=== PATIENT | female | born 1985 | race Caucasian/White ===

== ENCOUNTER 2017-08-25 08:10 | Emergency (ER) | payer BC ==
--- NOTE | 2017-08-25 08:39 | ER Document Report ---
ED Medical Screen (RME) - General Chief Complaint: Palpitations Stated Complaint: IRREGULAR HEART BEAT,LEFT SIDE PAIN Time Seen by Provider: 08/25/17 08:33 TRAVEL OUTSIDE OF THE [place] IN LAST 30 DAYS: No - HPI Notes: 08/25/17 08:34 32-year-old female with a hx of anxiety presents today with complaints of an irregular heartbeat for 2 days and left sided chest pain that started last night. Reports she does have some shortness of breath with her irregular heart rate. Pt states episodes lasts between 10 minutes to 45 minutes, then she will have roughly 30 minutes without the feeling of palpitations. pt reports hx of palpaitations from when she was a child, was seen by a manager data warehousing as a child and "grew out of them". Denies any numbness or tingling down upper/bilateral lower extremities denies any nausea, vomiting, diarrhea. Denies any blurred vision, double vision, loss of vision. denies any abd pain, vaginal or pelvic pain. denies any fevers or chills. eating and drinking normally. bearing down or coughing does not andreina her palpitations. I have greeted and performed a rapid initial assessment of this patient. A comprehensive ED assessment and evaluation of the patient, analysis of test results and completion of medical decision making process will be conducted by an additional ED providers. 08/25/17 08:53 - Related Data Allergies/Adverse Reactions: No Known Allergies Allergy (Verified 08/25/17 08:11) Physical Exam - Vital signs Vitals: Temp Pulse Resp BP Pulse Ox 98.1 F 70 16 107/63 100 08/25/17 08:21 08/25/17 08:21 08/25/17 08:21 08/25/17 08:21 08/25/17 08:21 Course - Vital Signs Vital signs: Temp Pulse Resp BP Pulse Ox 98.1 F 70 16 107/63 100 08/25/17 08:21 08/25/17 08:21 08/25/17 08:21 08/25/17 08:21 08/25/17 08:21
--- NOTE | 2017-08-25 09:53 | ER Document Report ---
ED General - General Chief Complaint: Palpitations Stated Complaint: IRREGULAR HEART BEAT,LEFT SIDE PAIN Time Seen by Provider: 08/25/17 08:33 Mode of Arrival: Ambulatory Information source: Patient TRAVEL OUTSIDE OF THE [place] IN LAST 30 DAYS: No - HPI Notes: 32-year-old female with a hx of anxiety presents today with complaints of an irregular heartbeat for 2 days and left sided chest pain that started last night. Reports she does have some shortness of breath with her irregular heart rate. Pt states episodes lasts between 10 minutes to 45 minutes, then she will have roughly 30 minutes without the feeling of palpitations. pt reports hx of palpaitations from when she was a child, was seen by a insurance healthcare consultant as a child and "grew out of them". Denies any numbness or tingling down upper/bilateral lower extremities denies any nausea, vomiting, diarrhea. Denies any blurred vision, double vision, loss of vision. denies any abd pain, vaginal or pelvic pain. denies any fevers or chills. eating and drinking normally. bearing down or coughing does not andreina her palpitations. I have greeted and performed a rapid initial assessment of this patient. A comprehensive ED assessment and evaluation of the patient, analysis of test results and completion of medical decision making process will be conducted by an additional ED providers. - Related Data Allergies/Adverse Reactions: No Known Allergies Allergy (Verified 08/25/17 08:11) Past Medical History - General Information source: Patient - Social History Smoking Status: Current Every Day Smoker Chew tobacco use (# tins/day): No Frequency of alcohol use: Occasional Drug Abuse: None Family History: None Patient has suicidal ideation: No Patient has homicidal ideation: No Renal/ Medical History: Denies: Hx Peritoneal Dialysis Psychiatric Medical History: Reports: Hx Depression Past Surgical History: Reports: Hx Tonsillectomy Physical Exam - Vital signs Vitals: Temp Pulse Resp BP Pulse Ox 98.1 F 70 16 107/63 100 08/25/17 08:21 08/25/17 08:21 08/25/17 08:21 08/25/17 08:21 08/25/17 08:21 Course - Re-evaluation Re-evalutation: 08/25/17 11:50 Follow up with primary care within 1-2 days. All questions and concerns answered by this provider. Patient/family states would follow plan of care and agreed to plan of care. Patient was discharged home and off unit without incident. Please excuse any errors in this document was done by dragon dictation. - Vital Signs Vital signs: Temp Pulse Resp BP Pulse Ox 98.7 F 64 18 128/69 H 98 08/25/17 12:12 08/25/17 12:12 08/25/17 12:12 08/25/17 12:12 08/25/17 12:12 - Laboratory Result Diagrams: 08/25/17 09:42 08/25/17 09:42 Laboratory results interpreted by me: 08/25/17 09:42 Eosinophils % 6.9 H - EKG Interpretation by Ar EKG shows normal: Sinus rhythm Rate: Normal Rhythm: NSR Discharge - Discharge Clinical Impression: Palpitations Condition: Good Disposition: HOME, SELF-CARE Instructions: Palpitations (Irregular or Rapid Heartrate) ([facility]) Additional Instructions: Palpitations (Irregular/Rapid Heartrate) Irregular or rapid heartbeat is called "palpitation." To diagnose the cause of palpitation, we have to "catch it in the act" with an EKG. Sinus Tachycardia: This is a rapid (but NORMAL) rhythm that can be due to fever, pain, anxiety, lack of sleep, over-exertion, or drugs. Cold medications, caffeine, and diet pills are particularly likely to cause tachycardia. Usually , all that's required is rest, reassurance, and avoiding caffeine, alcohol, nicotine, and unnecessary medicines. Paroxysmal Atrial Tachycardia (PAT): This abnormally rapid heartbeat is caused by a "short circuit" in the electrical system of the heart. It is not dangerous, unless other heart disease is present. These attacks of PAT may occur occasionally for years. Medication is available for treatment. Paroxysmal Atrial Fibrillation or Atrial Flutter: This is irregular electrical activity in the upper heart chamber. These abnormal rhythms often occur with valve disease or in hearts damaged by hardening of the arteries. These rhythms usually require further testing, for example a cardiac echo. Premature Beats: Extra beats occur more commonly after caffeine, nicotine , alcohol, cold pills, diet pills. Emotional stress or fatigue also provoke them. Extra beats are only dangerous when heart disease is present. They usually need no treatment. If they're frequent, or if evidence of heart disease develops, medication can be given to suppress them. If we were unable to "catch" the palpitations on EKG, you should try to get an EKG immediately if the symptoms begin again. Contact the physician at once if you develop persistent lightheadedness, shortness of breath, chest pain , or swelling of the ankles. Up with cardiology within 3-5 days. advised to return to the ER if any signs or symptoms became worse. Referrals: [facility] ALEJANDRE MD [EMER[facility]] - Follow up in 3-5 days
[2017-08-25 09:59] LABS: ABSOLUTE EOSINOPHILS # (AUTO) 0.4 10^3/uL (0.0-0.6); ABSOLUTE LYMPHOCYTES (AUTO) 1.6 10^3/uL (0.5-4.7); ABSOLUTE MONOCYTES (AUTO) 0.6 10^3/uL (0.1-1.4); ABSOLUTE NEUT (AUTO) 2.7 10^3/uL (1.7-8.2); BASOPHILS % (AUTO) 0.7 % (0-2); EOSINOPHILS % (AUTO) 6.9 % (0-6); HEMATOCRIT 37.7 % (36.0-47.0); HEMOGLOBIN 12.9 g/dL (12.0-15.5); LYMPHOCYTES % (AUTO) 30.4 % (13-45); MEAN CORPUSCULAR HEMOGLOBIN 31.2 pg (27.0-33.4); MEAN CORPUSCULAR HGB CONC 34.1 g/dL (32.0-36.0); MEAN CORPUSCULAR VOLUME 91 fl (80-97); MONOCYTES % (AUTO) 11.6 % (3-13); PLATELET COUNT 237 10^3/uL (150-450); RED BLOOD COUNT 4.13 10^6/uL (3.72-5.28); RED CELL DISTRIBUTION WIDTH 13.2 % (11.5-14.0); SEGMENTED NEUTROPHILS % (AUTO) 50.4 % (42-78); TOTAL CELLS COUNTED % (AUTO) 100 %; WHITE BLOOD COUNT 5.4 10^3/uL (4.0-10.5)
--- NOTE | 2017-08-25 10:11 | RADIOLOGY REPORT (SQ) ---
EXAM DESCRIPTION: CHEST PA/LAT COMPLETED DATE/TIME: 08/25/2017 10:02 am REASON FOR STUDY: Palpitations for 2 days COMPARISON: Two-view chest 02/05/2008 EXAM PARAMETERS: NUMBER OF VIEWS: two views TECHNIQUE: Digital Frontal and Lateral radiographic views of the chest acquired. RADIATION DOSE: NA LIMITATIONS: none FINDINGS: LUNGS AND PLEURA: No opacities, masses or pneumothorax. No pleural effusion. MEDIASTINUM AND HILAR STRUCTURES: No masses or contour abnormalities. HEART AND VASCULAR STRUCTURES: Heart normal size. No evidence for failure. BONES: No acute findings. HARDWARE: None in the chest. OTHER: No other significant finding. IMPRESSION: NO SIGNIFICANT RADIOGRAPHIC FINDING IN THE CHEST. TECHNICAL DOCUMENTATION: JOB ID: [id number] [employer]- All Rights Reserved
[2017-08-25 10:25] LABS: ALANINE AMINOTRANSFERASE 21 U/L (9-52); ALBUMIN 4.2 g/dL (3.5-5.0); ALKALINE PHOSPHATASE 65 U/L (38-126); ANION GAP 7 (5-19); ASPARTATE AMINO TRANSFERASE 34 U/L (14-36); BILIRUBIN,DIRECT 0.2 mg/dL (0.0-0.4); BILIRUBIN,TOTAL 0.4 mg/dL (0.2-1.3); BLOOD UREA NITROGEN 10 mg/dL (7-20); C-REACTIVE PROTEIN < 5.0 mg/L (<10.0); CALCIUM 9.1 mg/dL (8.4-10.2); CARBON DIOXIDE 29 mmol/L (22-30); CHLORIDE 104 mmol/L (98-107); CREATINE KINASE 121 U/L (30-135); GLUCOSE 78 mg/dL (75-110); POTASSIUM 3.8 mmol/L (3.6-5.0); SODIUM 139.7 mmol/L (137-145); TOTAL PROTEIN 6.6 g/dL (6.3-8.2)
[2017-08-25 10:31] LABS: CREATINE KINASE MB 0.36 ng/mL (<4.55)
[2017-08-25 10:34] LABS: TROPONIN I < 0.012 ng/mL
[2017-08-25 12:19] VITALS: BP 128/69
--- NOTE | 2017-08-25 14:01 | EKG REPORT ---
SEVERITY:- ABNORMAL ECG - SINUS RHYTHM NONSPECIFIC INTRAVENTRICULAR CONDUCTION DELAY : Confirmed by: Shar Ley MD 25-Aug-2017 14:00:23
== END 2017-08-25 12:14 | disposition home or self-care (01) ==
LOC: ER 08:10
DX: R00.2 Palpitations (principal); R07.9 Chest pain, unspecified; R06.02 Shortness of breath; F17.200 Nicotine dependence, unspecified, uncomplicated
CPT/HCPCS: 36415; 71046; 80053; 82550; 82553; 84484; 85025; 86140; 93005; 93010; 99285

== ENCOUNTER 2018-08-06 05:19 | Emergency (ER) | payer SELFPAY ==
[2018-08-06] MEDS ORDERED: DIPHENHYDRAMINE HCL 50 MG/ML VIAL IV ONE (06:08)
[2018-08-06] MEDS ORDERED: NORMAL SALINE 1000 ML 1,000 ML IV ONE ×3 (06:08→10:11)
--- NOTE | 2018-08-06 06:11 | ER Document Report ---
ED General - General Mode of Arrival: Ambulatory Information source: Patient TRAVEL OUTSIDE OF THE [place] IN LAST 30 DAYS: No <STELLA TORRES - Last Filed: 08/06/18 10:32> <DOREENNIRAV - Last Filed: 08/06/18 11:50> - General Chief Complaint: Dizziness Stated Complaint: ETOH Time Seen by Provider: 08/06/18 05:57 Notes: Patient is a 33 year old female with anxiety and depression presents to the emergency department complaining of dizziness onset this morning. Patient states she recently found out her significant other was cheating on her with her coworker. She states due to this, she has been consuming alcohol and cocaine for the the last 3 days to "numb the pain". She further states she only consumed cocaine so she could stay awake to continue drinking. She also states she has not eaten for the last couple of days. Patient reports taking 2 Xanax around 0000 to help her sleep. Patient denies suicidal ideation. Patient's LMP started on 08/05/2018. (STELLA TORRES) - Related Data Allergies/Adverse Reactions: No Known Allergies Allergy (Verified 08/25/17 08:11) Past Medical History - General Information source: Patient - Social History Smoking Status: Current Every Day Smoker Cigarette use (# per day): Yes - .5 PPD Chew tobacco use (# tins/day): No Smoking Education Provided: No Frequency of alcohol use: Heavy Drug Abuse: Cocaine Family History: None Psychiatric Medical History: Reports: Hx Anxiety, Hx Depression Past Surgical History: Reports: Hx Tonsillectomy <STELLA TORRES - Last Filed: 08/06/18 10:32> Review of Systems - Review of Systems Constitutional: No symptoms reported EENT: No symptoms reported Cardiovascular: See HPI, Dizziness Respiratory: No symptoms reported Gastrointestinal: No symptoms reported Genitourinary: No symptoms reported Female Genitourinary: No symptoms reported Musculoskeletal: No symptoms reported Skin: No symptoms reported Hematologic/Lymphatic: No symptoms reported Neurological/Psychological: See HPI. denies: Suicidal ideation -: Yes All other systems reviewed and negative <STELLA TORRES - Last Filed: 08/06/18 10:32> Physical Exam <STELLA TORRES - Last Filed: 08/06/18 10:32> - Vital signs Vitals: Temp Pulse Resp BP Pulse Ox 98 F 100 24 H 124/78 97 08/06/18 05:26 08/06/18 05:26 08/06/18 05:26 08/06/18 05:26 08/06/18 05:26 - Notes Notes: GENERAL: Alert, interacts well. No acute distress. HEAD: Normocephalic, atraumatic. EYES: Pupils equal, round, and reactive to light. Extraocular movements intact. ENT: Oral mucosa dry, tongue midline. NECK: Full range of motion. Supple. Trachea midline. LUNGS: Clear to auscultation bilaterally, no wheezes, rales, or rhonchi. No respiratory distress. HEART: Regular rate and rhythm. No murmurs, gallops, or rubs. ABDOMEN: Soft, non-tender. Non-distended. Bowel sounds present in all 4 quadrants. EXTREMITIES: Moves all 4 extremities spontaneously. NEUROLOGICAL: Alert and oriented x3. Normal speech. PSYCH: Tearful. SKIN: Warm, dry, normal turgor. No rashes or lesions noted. (STELLA TORRES) Course - Laboratory Result Diagrams: 08/06/18 06:25 08/06/18 06:25 <STELLA TORRES - Last Filed: 08/06/18 10:32> - Laboratory Result Diagrams: 08/06/18 06:25 08/06/18 06:25 - EKG Interpretation by Id EKG shows normal: Sinus rhythm, Cosmos, QRS Complexes. abnormal: Intervals, ST-T Waves - Nonspecific anterior T abnormalities borderline prolonged QT interval Rate: Normal - 77 Rhythm: NSR When compared to previous EKG there are: No significant change <NIRAV LOGAN - Last Filed: 08/06/18 11:50> - Vital Signs Vital signs: Temp Pulse Resp BP Pulse Ox 98 F 100 20 102/74 99 08/06/18 05:26 08/06/18 05:26 08/06/18 11:01 08/06/18 11:01 08/06/18 11:01 - Laboratory Laboratory results interpreted by nc: 08/06/18 08/06/18 08/06/18 06:25 06:25 11:19 RDW 15.1 H Eosinophils % 7.8 H Potassium 3.5 L BUN 4 L Creatine Kinase 297 H Urine Glucose (UA) 50 H Urine Blood LARGE H Ur Leukocyte Esterase SMALL H Salicylates < 1.0 L Acetaminophen < 10 L Discharge <STELLA TORRES - Last Filed: 08/06/18 10:32> <NIRAV LOGAN - Last Filed: 08/06/18 11:50> - Discharge Clinical Impression: Alcohol abuse, Cocaine abuse Depression Qualifiers: Depression Type: unspecified Qualified Code(s): F32.9 - Major depressive disorder, single episode, unspecified Condition: Stable Disposition: HOME, SELF-CARE Additional Instructions: Depression Your evaluation reveals that you have mental depression. While symptoms may be vague, they often include disturbance of sleep, fatigue, loss of appetite, and general loss of interest in life. While depression may be a side effect of drugs, or a reaction to a major change in your life, many cases have no known cause. If depression is acute, and related to a major loss in your life, you can expect it to clear completely with time. If you have been depressed a long time, are prone to repeated bouts of depression or low mood, or have been thinking of suicide, get help. Depression can be treated with anti-depressant medication and counselling. Long-term depression will often take a few weeks to clear, even with appropriate medication. Follow-up care is important. Contact your physician, the hospital emergency center, crisis line, or your counsellor if you are losing control or having self-destructive thoughts. Cocaine Abuse Cocaine causes many dangerous medical problems. Problems can occur even with "usual" amounts. Cocaine affects judgement, creating a sense of invulnerability. Cocaine users often make bad decisions that seem "great" at the time. Most cocaine users eventually will be hurt by bad job performance, damaged personal relations, crime, and unsafe sexual practices. Toxic effects of cocaine can include seizures, hallucinations, delusions, high blood pressure, heart damage, or sudden . There's always the risk of a "bad batch." But heart attacks, brain hemorrhages, or cardiac arrest can occur unpredictably even with "normal" use. Injection of cocaine is risky for abscesses, endocarditis (heart infection), pneumonia, and AIDS. Withdrawal from cocaine often causes anxiety and drug cravings. Some users become paranoid and psychotic. Many treatment programs are available, but you must make the decision to quit. Medication can be prescribed to control the symptoms of cocaine toxicity (beta blockers or benzodiazepines). Withdrawal symptoms may require tranquilizers. Stop drinking alcohol and using drugs. Drink plenty of fluids and get plenty of rest today. Follow-up with your health care provider on August 13 as planned. RETURN TO THE EMERGENCY ROOM IF ANY NEW OR WORSENING SYMPTOMS. Referrals: YOLANDA WOLFE, BAG SORTER-C [Primary Care Provider] - 08/13/18 Scribe Attestation: 08/06/18 07:13 I personally performed the services described in the documentation, reviewed and edited the documentation which was dictated to the scribe in my presence, and it accurately records my words and actions. (NIRAV LOGAN) Scribe Documentation - Scribe Written by Riki:: Riki Rudd, 08/06/2018 06:17 acting as scribe for :: Doreen <STELLA TORRES - Last Filed: 08/06/18 10:32>
[2018-08-06 06:34] LABS: ABSOLUTE BASOPHILS # (AUTO) 0.1 10^3/uL (0.0-0.2); ABSOLUTE EOSINOPHILS # (AUTO) 0.5 10^3/uL (0.0-0.6); ABSOLUTE MONOCYTES (AUTO) 0.8 10^3/uL (0.1-1.4); ABSOLUTE NEUT (AUTO) 3.6 10^3/uL (1.7-8.2); BASOPHILS % (AUTO) 0.8 % (0-2); EOSINOPHILS % (AUTO) 7.8 % (0-6); HEMATOCRIT 37.3 % (36.0-47.0); HEMOGLOBIN 12.6 g/dL (12.0-15.5); LYMPHOCYTES % (AUTO) 28.2 % (13-45); MEAN CORPUSCULAR HEMOGLOBIN 28.5 pg (27.0-33.4); MEAN CORPUSCULAR HGB CONC 33.7 g/dL (32.0-36.0); MEAN CORPUSCULAR VOLUME 85 fl (80-97); MONOCYTES % (AUTO) 11.1 % (3-13); PLATELET COUNT 284 10^3/uL (150-450); RED BLOOD COUNT 4.41 10^6/uL (3.72-5.28); RED CELL DISTRIBUTION WIDTH 15.1 % (11.5-14.0); SEGMENTED NEUTROPHILS % (AUTO) 52.1 % (42-78); TOTAL CELLS COUNTED % (AUTO) 100 %
[2018-08-06 06:49] LABS: ALANINE AMINOTRANSFERASE 16 U/L (9-52); ALKALINE PHOSPHATASE 114 U/L (38-126); ANION GAP 9 (5-19); ASPARTATE AMINO TRANSFERASE 29 U/L (14-36); BILIRUBIN,DIRECT 0.2 mg/dL (0.0-0.4); BLOOD UREA NITROGEN 4 mg/dL (7-20); CALCIUM 9.2 mg/dL (8.4-10.2); CARBON DIOXIDE 26 mmol/L (22-30); CHLORIDE 104 mmol/L (98-107); CREATINE KINASE 297 U/L (30-135); GLUCOSE 99 mg/dL (75-110); POTASSIUM 3.5 mmol/L (3.6-5.0); SODIUM 138.5 mmol/L (137-145); TOTAL PROTEIN 6.9 g/dL (6.3-8.2)
[2018-08-06 06:50] LABS: ACETAMINOPHEN < 10 ug/mL (10-30); ALCOHOL < 10 mg/dL (NONE DETECTED); SALICYLATE < 1.0 mg/dL (2.0-20.0)
[2018-08-06] MEDS ORDERED: DEXTROSE 5%-LACTATED RINGERS 1,000 ML IV ONE (06:50)
[2018-08-06 07:00] LABS: CREATINE KINASE MB 1.77 ng/mL (<4.55)
[2018-08-06 07:02] LABS: TROPONIN I < 0.012 ng/mL
[2018-08-06 11:44] LABS: APPEARANCE,URINE SLIGHTLY-CLOUDY; BILIRUBIN,URINE NEGATIVE (NEGATIVE); COLOR,URINE YELLOW; GLUCOSE, URINE 50 mg/dL (NEGATIVE); KETONES,URINE NEGATIVE (NEGATIVE); LEUKOCYTE ESTERASE,URINE SMALL (NEGATIVE); NITRITE,URINE NEGATIVE (NEGATIVE); PROTEIN,URINE NEGATIVE (NEGATIVE); URINE SPECIFIC GRAVITY 1.009; UROBILINOGEN,URINE NEGATIVE mg/dL (<2.0)
[2018-08-06 11:59] LABS: URINE AMPHETAMINES SCREEN NEGATIVE; URINE BARBITURATES SCREEN NEGATIVE; URINE BENZODIAZEPINES SCREEN UNCONFIRMED POSITIVE; URINE COCAINE SCREEN UNCONFIRMED POSITIVE; URINE MARIJUANA (THC) SCREEN NEGATIVE; URINE METHADONE SCREEN NEGATIVE; URINE PHENCYCLIDINE SCREEN NEGATIVE
[2018-08-06 12:13] VITALS: BP 104/61
--- NOTE | 2018-08-06 13:32 | EKG REPORT ---
SEVERITY:- ABNORMAL ECG - SINUS RHYTHM NONSPECIFIC T ABNORMALITIES, ANTERIOR LEADS BORDERLINE PROLONGED QT INTERVAL : Confirmed by: Collins Velásquez 06-Aug-2018 13:32:12
--- NOTE | 2018-08-06 14:12 | PSYCHOLOGICAL NOTE ---
Psych Note - Psych Note Date seen by psych provider: 08/06/18 Time seen by psych provider: 09:00 Psych Note: Reason for Consult:substance abuse/depression Patient is a 33 year old female with anxiety and depression presents to the emergency department complaining of dizziness onset this morning. Patient disclosed that she discovered her significant other was cheating on her so started binge drinking. She reports that she had not eaten any food for 2 days and just drank and was doing cocaine in order to stay awake feel good and to continue drinking. She denies this was an attempt to harm herself stating that it was "an escape so I do not have to deal with the reality for a while." She continued to report that she knew that she was going to have to deal with it at some time, she was just trying to put it off. She states that she normally does not drink or do drugs but was very hurt. She denies wanting to harm herself or others. She is diagnosed with anxiety and depression and receives care through [facility]. She states that she has a very strong support system with friends and family and will get through this current situation. She states that she has been hard because she has been with her significant other for 10 years and feels very betrayed after finding out that her significant other slept with the patient's little sister in addition to a coworker. She reports that she had a previous episode about 2 years ago where she started Lexapro because her cousin by suicide. She reports that during that timeframe she was "really sick... that was true mental health." When asked on reflection between today's events and 2 years ago she reports that 2 years ago she truly was sick and needed mental health assistance today was just her trying to avoid reality for little while. She discloses that last night she finally came home and wanted to sleep and not have to think about anything so took 2 0.5 mg Xanax noting that in the past that would help her sleep for 8 hours no problem. She reports after 4 hours she woke up in a panic and thought that she had possibly accidentally overdosed. She reports she was very scared so came to [facility] for help because she did not want to . Patient is alert and orientated to person, place, time and circumstance. Mood is dysphoric with flat affect. Clinician notes patient is feeling the effects of overindulgence. Patient denies suicidal and homicidal ideation. Delusions a re absent behaviors congruent with an intact reality based presentation i.e. organized linear thought process. Eye contact is well-maintained. Conversational speech was within normal rate, tone and prosody. Intellectual abilities appear to be within the average range. Attention and concentration were good. Insight, judgment, impulse control are fair to good. No medication recommendations at this time V61.10 (Z 63.0) relationship disstress with intimate partner 311 (F32.9) unspecified depressive disorder per history provided by patient 300.00 (F 41.9) unspecified anxiety disorder per history provided by patient Pression\\plan: Patient is cleared from acute psychiatric services. Patient does not meet IVC criteria per DC GS 120 2C. Patient openly engaged and discussed recent events that drove her to wanting to escape. She reports using both alcohol and cocaine to do this. She reports that when she wanted to go to sleep she took 2 0.5 mg tablets of Xanax and it effort to fall asleep however when she woke she thought she accidentally overdosed so came to [facility] for assistance. Patient adamantly denies thoughts of wanting to harm herself. She disclosed that she has strong support system with friends and family. She has an outpatient mental health provider through [facility]. Patient is recommended to continue with services in addition to obtaining one-on-one therapeutic services. Dr. Barry was consulted and the care management this patient; attending physicians in agreement with recommendations and disposition.
== END 2018-08-06 12:29 | disposition home or self-care (01) ==
LOC: ER 05:19
DX: F32.9 Major depressive disorder, single episode, unspecified (principal); F41.9 Anxiety disorder, unspecified; F14.10 Cocaine abuse, uncomplicated; F10.10 Alcohol abuse, uncomplicated; Z63.0 Problems in relationship with spouse or partner; F17.210 Nicotine dependence, cigarettes, uncomplicated
CPT/HCPCS: 93005; 99285; 96361; 96374; 36415; 82553; 80307 ×4; 82550; 84703; 85025; 80053; 81001; 84484; 93010; J1200; J7030

== ENCOUNTER 2019-10-28 11:14 | Emergency (ER) | payer SELFPAY ==
--- NOTE | 2019-10-28 11:53 | ER Document Report ---
ED Medical Screen (RME) - General Chief Complaint: Chest Pain Stated Complaint: CHEST PAIN/RAPID HEART RATE Time Seen by Provider: 10/28/19 11:50 Primary Care Provider: YOLANDA WOLFE FNP-C [Primary Care Provider] - Follow up as needed TRAVEL OUTSIDE OF THE [place] IN LAST 30 DAYS: No - Related Data Allergies/Adverse Reactions: No Known Allergies Allergy (Verified 08/25/17 08:11) Past Medical History Renal/ Medical History: Denies: Hx Peritoneal Dialysis Psychiatric Medical History: Reports: Hx Anxiety, Hx Depression Past Surgical History: Reports: Hx Tonsillectomy Physical Exam - Vital signs Vitals: Temp Pulse Resp BP Pulse Ox 98.5 F 101 H 24 H 132/66 H 98 10/28/19 11:38 10/28/19 11:38 10/28/19 11:38 10/28/19 11:38 10/28/19 11:38 Course - Vital Signs Vital signs: Temp Pulse Resp BP Pulse Ox 98.5 F 101 H 24 H 132/66 H 98 10/28/19 11:38 10/28/19 11:38 10/28/19 11:38 10/28/19 11:38 10/28/19 11:38 Doctor's Discharge - Discharge Referrals: YOLANDA WOLFE FNP-C [Primary Care Provider] - Follow up as needed
[2019-10-28] MEDS ORDERED: HYDROXYZINE PAMOATE 25 MG CAPSULE PO ONE (11:55)
--- NOTE | 2019-10-28 11:57 | ER Document Report ---
ED Medical Screen (RME) - General Chief Complaint: Chest Pain Stated Complaint: CHEST PAIN/RAPID HEART RATE Time Seen by Provider: 10/28/19 11:50 Primary Care Provider: YOLANDA WOLFE FNP-C [Primary Care Provider] - Follow up as needed Mode of Arrival: Wheelchair Information source: Patient Notes: Patient presents to the emergency department with complaints of heart racing, mind racing. Patient reports that she was at a [employer] last night did a lot of red bull drinks. She also reports she did some cocaine. Patient reports that at around 1:00 she did take Ativan 1 of that her friend gave her. She reports since that time she has not been able to sleep she is very shaky her heart is racing her mind is racing. I have greeted and performed a rapid initial assessment of this patient. A comprehensive ED assessment and evaluation of the patient, analysis of test results and completion of the medical decision making process will be conducted by additional ED providers. TRAVEL OUTSIDE OF THE [place] IN LAST 30 DAYS: No - Related Data Allergies/Adverse Reactions: No Known Allergies Allergy (Verified 10/28/19 11:50) Past Medical History Renal/ Medical History: Denies: Hx Peritoneal Dialysis Psychiatric Medical History: Reports: Hx Anxiety, Hx Depression Past Surgical History: Reports: Hx Tonsillectomy Physical Exam - Vital signs Vitals: Temp Pulse Resp BP Pulse Ox 98.5 F 101 H 24 H 132/66 H 98 10/28/19 11:38 10/28/19 11:38 10/28/19 11:38 10/28/19 11:38 10/28/19 11:38 Course - Vital Signs Vital signs: Temp Pulse Resp BP Pulse Ox 98.5 F 101 H 24 H 132/66 H 98 10/28/19 11:38 10/28/19 11:38 10/28/19 11:38 10/28/19 11:38 10/28/19 11:38 Doctor's Discharge - Discharge Referrals: YOLANDA WOLFE FNP-C [Primary Care Provider] - Follow up as needed
[2019-10-28 12:55] LABS: APPEARANCE,URINE CLEAR; BILIRUBIN,URINE NEGATIVE (NEGATIVE); COLOR,URINE STRAW; GLUCOSE, URINE NEGATIVE (NEGATIVE); KETONES,URINE 20 mg/dL (NEGATIVE); LEUKOCYTE ESTERASE,URINE NEGATIVE (NEGATIVE); NITRITE,URINE NEGATIVE (NEGATIVE); PROTEIN,URINE NEGATIVE (NEGATIVE); URINE SPECIFIC GRAVITY 1.005; UROBILINOGEN,URINE NEGATIVE mg/dL (<2.0)
[2019-10-28 13:06] LABS: ABSOLUTE EOSINOPHILS # (AUTO) 0.2 10^3/uL (0.0-0.6); ABSOLUTE LYMPHOCYTES (AUTO) 1.5 10^3/uL (0.5-4.7); ABSOLUTE MONOCYTES (AUTO) 0.6 10^3/uL (0.1-1.4); ABSOLUTE NEUT (AUTO) 4.5 10^3/uL (1.7-8.2); BASOPHILS % (AUTO) 0.7 % (0-2); EOSINOPHILS % (AUTO) 2.5 % (0-6); HEMATOCRIT 34.5 % (36.0-47.0); HEMOGLOBIN 11.6 g/dL (12.0-15.5); LYMPHOCYTES % (AUTO) 21.9 % (13-45); MEAN CORPUSCULAR HEMOGLOBIN 27.4 pg (27.0-33.4); MEAN CORPUSCULAR HGB CONC 33.7 g/dL (32.0-36.0); MEAN CORPUSCULAR VOLUME 81 fl (80-97); MONOCYTES % (AUTO) 9.3 % (3-13); PLATELET COUNT 270 10^3/uL (150-450); RED BLOOD COUNT 4.24 10^6/uL (3.72-5.28); RED CELL DISTRIBUTION WIDTH 16.7 % (11.5-14.0); SEGMENTED NEUTROPHILS % (AUTO) 65.6 % (42-78); TOTAL CELLS COUNTED % (AUTO) 100 %; WHITE BLOOD COUNT 6.9 10^3/uL (4.0-10.5)
[2019-10-28 13:09] LABS: URINE AMPHETAMINES SCREEN NEGATIVE; URINE BARBITURATES SCREEN NEGATIVE; URINE BENZODIAZEPINES SCREEN NEGATIVE; URINE METHADONE SCREEN NEGATIVE; URINE PHENCYCLIDINE SCREEN NEGATIVE
[2019-10-28 13:14] LABS: URINE COCAINE SCREEN UNCONFIRMED POSITIVE; URINE MARIJUANA (THC) SCREEN UNCONFIRMED POSITIVE
[2019-10-28 13:19] LABS: A TYPE INFLUENZA AG NEGATIVE (NEGATIVE); B INFLUENZA AG NEGATIVE (NEGATIVE)
--- NOTE | 2019-10-28 13:22 | RADIOLOGY REPORT (SQ) ---
EXAM DESCRIPTION: CHEST 2 VIEWS COMPLETED DATE/TIME: 10/28/2019 1:02 pm REASON FOR STUDY: heart racing COMPARISON: 08/25/2017 EXAM PARAMETERS: NUMBER OF VIEWS: two views TECHNIQUE: Digital Frontal and Lateral radiographic views of the chest acquired. RADIATION DOSE: NA LIMITATIONS: none FINDINGS: LUNGS AND PLEURA: No opacities, masses or pneumothorax. No pleural effusion. MEDIASTINUM AND HILAR STRUCTURES: No masses or contour abnormalities. HEART AND VASCULAR STRUCTURES: Heart normal size. No evidence for failure. BONES: No acute findings. HARDWARE: None in the chest. OTHER: No other significant finding. IMPRESSION: NO ACUTE RADIOGRAPHIC FINDING IN THE CHEST. TECHNICAL DOCUMENTATION: JOB ID: [id number] [email or web address]- All Rights Reserved Reading location - IP/workstation name: [email or web address]
[2019-10-28 13:30] LABS: ALBUMIN 4.7 g/dL (3.5-5.0); ALCOHOL 16 mg/dL (NONE DETECTED); ALKALINE PHOSPHATASE 103 U/L (38-126); ANION GAP 14 (5-19); ASPARTATE AMINO TRANSFERASE 39 U/L (14-36); BILIRUBIN,TOTAL 0.7 mg/dL (0.2-1.3); BLOOD UREA NITROGEN 6 mg/dL (7-20); CALCIUM 9.1 mg/dL (8.4-10.2); CARBON DIOXIDE 23 mmol/L (22-30); CHLORIDE 100 mmol/L (98-107); GLUCOSE 77 mg/dL (75-110); POTASSIUM 3.8 mmol/L (3.6-5.0); TOTAL PROTEIN 7.7 g/dL (6.3-8.2)
[2019-10-28 13:33] LABS: ACETAMINOPHEN < 10 ug/mL (10-30); SALICYLATE < 1.0 mg/dL (2.0-20.0)
--- NOTE | 2019-10-28 14:10 | ER Document Report ---
ED GI/ - General Chief Complaint: Tremor Stated Complaint: CHEST PAIN/RAPID HEART RATE Time Seen by Provider: 10/28/19 11:50 Primary Care Provider: YOLANDA WOLFE FNP-C [Primary Care Provider] - Follow up as needed Mode of Arrival: Wheelchair Notes: HPI: 34-year-old female who presents today stating she snorted an unknown amount of cocaine and drank around 4-6 red bowls last evening celebrating a new job. She states she lives in [facility]. She denies any and all headache, neck pain, runny nose, congestion, cough, shortness of breath, fevers, chest pain, abdominal pain. Patient states that she lives with her sister which works for a very big company and the company recently told the sister that she was possibly exposed to the coronavirus. This patient understands that she should most likely be on self quarantine with her sister. ROS: See HPI All other review of systems reviewed and otherwise negative Reviewed vital signs and nursing note as charted by RN. PHYSICAL EXAM: CONSTITUTIONAL: Alert and oriented and responds appropriately to questions. Well-appearing; well-nourished HEAD: Normocephalic; atraumatic EYES: PERRL; no nystagmus ENT: Normal nose; no rhinorrhea; moist mucous membranes; pharynx without lesions noted NECK: Supple without meningismus; non-tender; no cervical lymphadenopathy, no masses CARD: Regular rate and rhythm; no murmurs; symmetric distal pulses RESP: Normal chest excursion without splinting or tachypnea; breath sounds clear and equal bilaterally; no wheezes, no rhonchi, no rales ABD/GI: Normal bowel sounds; non-distended; soft, non-tender; no palpable organomegaly or masses BACK: The back appears normal and is non-tender to palpation EXT: Normal ROM in all joints; non-tender to palpation; no edema SKIN: No acute lesions noted NEURO: CN 2-12 intact; 5/5 bilateral upper and lower extremity strength with sensation intact to light touch PSYCH: The patient's mood and manner are appropriate. Grooming and personal hygiene are appropriate. TRAVEL OUTSIDE OF THE [place] IN LAST 30 DAYS: No - Related Data Allergies/Adverse Reactions: No Known Allergies Allergy (Verified 10/28/19 11:50) Past Medical History - General Information source: Patient - Social History Smoking Status: Current Every Day Smoker Chew tobacco use (# tins/day): No Frequency of alcohol use: Social Drug Abuse: Cocaine Family History: None Patient has suicidal ideation: Yes Patient has homicidal ideation: No Renal/ Medical History: Denies: Hx Peritoneal Dialysis Psychiatric Medical History: Reports: Hx Anxiety, Hx Depression Past Surgical History: Reports: Hx Tonsillectomy Physical Exam - Vital signs Vitals: Temp Pulse Resp BP Pulse Ox 98.5 F 101 H 24 H 132/66 H 98 10/28/19 11:38 10/28/19 11:38 10/28/19 11:38 10/28/19 11:38 10/28/19 11:38 Course - Re-evaluation Re-evalutation: Given the above history and physical examination, we will obtain basic labs, EKG, place the patient on the monitor, and reassess. Patient has no respiratory symptoms, fevers, or shortness of breath at this time. EKG shows a heart rate of 101, inverted T waves in V3 and 3. Flattening T waves inferiorly and laterally otherwise. 10/28/19 14:08 Labs and urine drug screen as recorded. EKG as above. Currently chest pain- free. X-ray of the chest shows no acute findings. Patient denies any symptomatology at this time. Given the slightly abnormal EKG we will obtain a repeat 3-hour troponin and if this is unremarkable discharge the patient home. She understands to stay well-hydrated and to follow-up with the primary care physician. She has been given instructions regarding strict return precautions as well as quarantine instructions and follow-up with the primary doctor as needed. 10/28/19 14:34 Patient had discussed some passive SI when she was having all the symptoms yesterday. She denies any suicidal ideations today. She denies any auditory visual hallucinations. No history of suicidal attempts or ideations in the past. Behavioral health team is seen and assessed the patient I do not believe the patient is a risk to herself or others at this time. - Vital Signs Vital signs: Temp Pulse Resp BP Pulse Ox 98.5 F 101 H 16 146/90 H 99 10/28/19 11:38 10/28/19 11:38 10/28/19 14:01 10/28/19 14:00 10/28/19 14:01 - Laboratory Result Diagrams: 10/28/19 12:40 10/28/19 12:40 Laboratory results interpreted by me: 10/28/19 10/28/19 10/28/19 11:45 12:40 12:40 Hgb 11.6 L Hct 34.5 L RDW 16.7 H BUN 6 L AST 39 H Urine Ketones 20 H Salicylates < 1.0 L Acetaminophen < 10 L Discharge - Discharge Clinical Impression: Drug abuse, Palpitations Condition: Good Disposition: HOME, SELF-CARE Additional Instructions: Come back immediately for any return of symptomatology, chest pain, vomiting, weakness or numbness, or any other acute problems. Please follow quarantine instructions and follow-up for testing only as needed. Referrals: YOLANDA WOLFE, [facility]-C [Primary Care Provider] - Follow up as needed
--- NOTE | 2019-10-28 14:20 | PSYCHOLOGICAL NOTE ---
Psych Note - Psych Note Date seen by psych provider: 10/28/19 Time seen by psych provider: 14:00 Psych Note: Reason For Consult:Anxiety, Suicidal ideation Consent Permissions:none provided She discloses that she was drinking last night, and the drinks contained red bu ll. She reports that she has never drink that much red bull before and became scared when she was unable to fall asleep, was jittery, could not sit still and was mind was racing. She reports she drove herself to the hospital because she had never felt that way and she was "terrified." She states that she started to have thoughts of dying during this episode which really scared her. She states that that is what caused her to stop drinking and drink water. She reports "it was a horrible night." She states she never had any plans means or intent it was only passing thoughts and now that she is no longer having difficulty with the caffeine she denies any thoughts of wanting to harm herself. She reports approximately 3 years ago she was diagnosed with anxiety and put on Lexapro 10 mg daily and has not had any problems since until last night. Patient reports that she is still experiencing some sensory issues such as easily being startled when hearing a noise. Patient is alert and orientated to person, place, time and circumstance. Mood dysphoric with blunted affect. Clinician notes patient was attempting to stay awake during evaluation after night of drinking alcohol with red bull. Patient denies current suicidal and homicidal ideation. She discloses experiencing passive suicidal ideation i.e. no plans means or intent when being unable to control her anxiety after substantial intake of caffeine. Delusions are absent and behaviors congruent with an intact reality based presentation ie organized and linear thought process. Eye contact is poor as patient is struggling to stay awake and does keep her eyes closed during evaluation. Conversational speech is within normal rate, tone and prosody. Intellectual abilities appear to be within the average range. Attention and concentration are good. Insight, judgment, impulse control are fair. Impression\\plan: Patient is cleared from acute psychiatric services. At this time patient denies any thoughts of wanting to harm herself. She does discloses experiencing passive suicidal ideation i.e. no plans means or intent when struggling with severe anxiety after drinking too much red bull. Patient was out with friends drinking alcohol that contained red bull and reports that she has never experienced drinking that much before. Patient was unable to calm herself and became very scared so came to [facility] to ensure she was okay. Patient has successfully controlled her diagnosed anxiety with Lexapro 10 mg daily for the last 3 years. Patient is recommended to follow-up with her outpatient mental health provider for continued outpatient services. Dr. Barry was consulted to care management of this patient; attending physicians in agreement with recommendations and disposition.
--- NOTE | 2019-10-28 15:38 | EKG REPORT ---
SEVERITY:- ABNORMAL ECG - SINUS TACHYCARDIA LEFT ATRIAL ABNORMALITY : Confirmed by: Clare Montalvo MD 28-Oct-2019 15:37:24
[2019-10-28 16:08] VITALS: BP 114/72
== END 2019-10-28 18:20 | disposition home or self-care (01) ==
LOC: ER 11:14
DX: F14.10 Cocaine abuse, uncomplicated (principal); Z72.89 Other problems related to lifestyle; R00.2 Palpitations; R25.1 Tremor, unspecified; R07.9 Chest pain, unspecified; R00.0 Tachycardia, unspecified; F10.10 Alcohol abuse, uncomplicated; F17.200 Nicotine dependence, unspecified, uncomplicated
CPT/HCPCS: 36415; 71046; 80053; 80307; 81001; 84484; 84703; 85025; 87070; 87804; 87880; 93005; 93010; 99285